=== PATIENT | female | born 1990 | race Hispanic/Latino ===

== ENCOUNTER 2023-11-08 21:53 | Observation (INO) | payer BC, SELFPAY ==
[2023-11-08] MEDS ORDERED: Ketorolac Tromethamine 30 MG (1 mL) VIAL ONE (23:04)
[2023-11-08] MEDS ORDERED: Famotidine/PF 20 mg/2ml Vial ONE (23:04)
[2023-11-08 23:09] LABS: #Basophils Less than 0.03 10x3/uL (0.0-0.2); %Basophils 0.2 % (0.0-1.0); %Eosinophils 0.3 % (0.0-10.0); %Lymphocytes 19.5 % (21.0-51.0); %Monocytes 4.2 % (0.0-10.0); %Neutrophils 75.4 % (42.0-75.0); Hematocrit 39.7 % (36.0-47.0); Hemoglobin 12.8 g/dL (12.0-16.0); Mean Corpuscular HGB CONC 32.2 g/dL (32.0-36.0); Mean Corpuscular Hemoglobin 27.1 pg (27.0-31.0); Mean Corpuscular Volume 83.9 fL (78.0-98.0); Mean Platelet Volume 11.3 fL (7.4-10.4); Platelet Count 309 10x3/uL (130-400); RBC Distribution Width 14.9 % (11.5-14.5); Red Blood Cell (RBC) Count 4.73 mill/uL (4.20-5.40)
[2023-11-08 23:21] LABS: ALT (SGPT) 84 U/L (8-55); AST (SGOT) 133 U/L (5-34); Albumin 4.1 g/dL (3.5-5.0); Alkaline Phosphatase 157 U/L (40-110); Anion Gap 15 mmol/L (10-20); BUN (Urea Nitrogen) 14 mg/dL (7.0-18.7); Bilirubin, Total 0.7 mg/dL (0.2-1.2); Calc. Creatinine Clearance 0 mL/min (70-130); Calcium 9.3 mg/dL (7.8-10.44); Carbon Dioxide 21 mmol/L (22-29); Chloride 109 mmol/L (98-107); Estimated GFR 100; Globulin 3.4 g/dL (2.4-3.5); Glucose 124 mg/dL (70-105); Lipase 34 U/L (8-78); Potassium 3.9 mmol/L (3.5-5.1); Protein, Total 7.5 g/dL (6.0-8.3); Sodium 141 mmol/L (136-145)
[2023-11-08 23:28] LABS: Troponin I Less than 0.010 ng/mL (< 0.028)
[2023-11-08 23:40] LABS: BHCG - Serum Negative (NEGATIVE); Pregs Control Background? CLEAR/WHITE (CLR/WHITE); Pregs Control Bar Appear? YES (CONTROL BAR)
[2023-11-09 00:41] LABS: Bacteria/HPF None Seen HPF (None Seen); Bilirubin Negative (Negative); Blood, Urine Negative (Negative); CAUTI Indications for Culture Pelvic or flank pain; Clarity Clear (Clear); Glucose, Urine (Dipstick) Normal (Negative); Ketone, Urine 20 mg/dL (Negative); Leukocyte 25 Leu/uL (Negative); Nitrite Negative (Negative); Protein, Urine (Dipstick) 20 mg/dL (Neg-Trace); RBC/HPF 0-3 HPF (0-3); Specific Gravity, Urine 1.033 (1.002-1.036); Squamous Epithelial 0-3 HPF (0-3); Urine Culture Reflex No No; WBC/HPF 0-3 HPF (0-3); pH, Urine 7.5 (5.0-9.0)
[2023-11-09] MEDS ORDERED: Ondansetron PF 4 MG/2 ML Vial ONE (01:25)
[2023-11-09] MEDS ORDERED: Morphine 4 MG/ML VIAL ONE (01:25)
[2023-11-09] MEDS ORDERED: Sodium Chloride 0.9% 100 ML ONE (01:39)
[2023-11-09] MEDS ORDERED: Piperacillin/Tazobactam 4.5 GM VIAL ONE (01:39)
[2023-11-09] MEDS ORDERED: Morphine 4 MG/ML VIAL SLOW IVP PRN ×2 (01:51→03:09)
[2023-11-09 02:55] VITALS: BMI 37.2
[2023-11-09] MEDS ORDERED: HYDROcodone/Acetaminophen 7.5/325 mg Tablet PO PRN (03:08)
[2023-11-09] MEDS ORDERED: Acetaminophen 325 MG TAB PO PRN (03:09)
[2023-11-09] MEDS ORDERED: Promethazine HCl 25 MG/ML VIAL IM PRN (03:09)
[2023-11-09] MEDS ORDERED: Ondansetron PF 4 MG/2 ML Vial IVP PRN (03:09)
[2023-11-09] MEDS ORDERED: Calcium Carbonate 500 MG ChewTAB PO PRN (03:09)
[2023-11-09] MEDS ORDERED: Mag-Al 1200 mg/1200 mg/30 ML UDCUP PO PRN (03:09)
[2023-11-09] MEDS ORDERED: hydrALAZINE 20 MG/ML VIAL SLOW IVP PRN (03:09)
[2023-11-09] MEDS: Lactated Ringer's 1,000 ML IV SCH (03:17)
[2023-11-09] MEDS: Piperacillin/Tazobactam 3.375 GM in Sodium Chloride 0.9% 100 ML IVPB SCH (05:59)
[2023-11-09] MEDS: Ondansetron PF 4 MG/2 ML Vial IVP PRN (06:00)
[2023-11-09] MEDS: Famotidine 20 MG TAB PO SCH (07:34)
[2023-11-09 08:33] LABS: ALT (SGPT) 210 U/L (8-55); AST (SGOT) 290 U/L (5-34); Albumin 3.3 g/dL (3.5-5.0); Alkaline Phosphatase 148 U/L (40-110); Anion Gap 10 mmol/L (10-20); BUN (Urea Nitrogen) 12 mg/dL (7.0-18.7); Bilirubin, Total 1.4 mg/dL (0.2-1.2); Calc. Creatinine Clearance 234 mL/min (70-130); Calcium 8.7 mg/dL (7.8-10.44); Carbon Dioxide 21 mmol/L (22-29); Chloride 110 mmol/L (98-107); Estimated GFR 119; Globulin 3.1 g/dL (2.4-3.5); Glucose 107 mg/dL (70-105); Potassium 3.8 mmol/L (3.5-5.1); Protein, Total 6.4 g/dL (6.0-8.3); Sodium 137 mmol/L (136-145)
[2023-11-09 15:39] VITALS: BP 127/86; TEMP 97.6
== END 2023-11-09 18:36 | disposition home or self-care (01) ==
LOC: ERS 21:53 → SJJU 11-09 01:43
PROVIDERS: ADMIT Student in an Organized Health Care Education/Training Program; ATTEND Student in an Organized Health Care Education/Training Program
DX: K80.00 Calculus of gallbladder with acute cholecystitis without obstruction (principal); Z88.2 Allergy status to sulfonamides; Z88.5 Allergy status to narcotic agent
CPT/HCPCS: 36415; 71045; 71275; 76705; 80053; 81001; 83690; 83880; 84484; 84703; 85025; 85379; 93005; 96365; 96375; 96376; G0378; J1885; J2270; J2405; J2543; J3490; J7120; S0028

== ENCOUNTER 2023-11-10 05:08 | Inpatient (IN) | payer BC, SELFPAY ==
[2023-11-10] MEDS ORDERED: Ketorolac Tromethamine 30 MG (1 mL) VIAL ONE (06:06)
[2023-11-10 06:10] LABS: #Basophils Less than 0.03 10x3/uL (0.0-0.2); %Basophils 0.3 % (0.0-1.0); %Eosinophils 1.2 % (0.0-10.0); %Lymphocytes 26.1 % (21.0-51.0); %Monocytes 4.3 % (0.0-10.0); %Neutrophils 67.9 % (42.0-75.0); Hematocrit 38.3 % (36.0-47.0); Hemoglobin 12.6 g/dL (12.0-16.0); Mean Corpuscular HGB CONC 32.9 g/dL (32.0-36.0); Mean Corpuscular Hemoglobin 26.8 pg (27.0-31.0); Mean Corpuscular Volume 81.5 fL (78.0-98.0); Mean Platelet Volume 11.3 fL (7.4-10.4); Platelet Count 266 10x3/uL (130-400)
[2023-11-10 06:31] LABS: ALT (SGPT) 543 U/L (8-55); AST (SGOT) 415 U/L (5-34); Albumin 3.6 g/dL (3.5-5.0); Alkaline Phosphatase 259 U/L (40-110); Anion Gap 12 mmol/L (10-20); BUN (Urea Nitrogen) 10 mg/dL (7.0-18.7); Bilirubin, Total 3.2 mg/dL (0.2-1.2); Calc. Creatinine Clearance 0 mL/min (70-130); Calcium 8.9 mg/dL (7.8-10.44); Carbon Dioxide 19 mmol/L (22-29); Chloride 107 mmol/L (98-107); Estimated GFR 118; Globulin 3.4 g/dL (2.4-3.5); Glucose 125 mg/dL (70-105); Lipase 28 U/L (8-78); Sodium 134 mmol/L (136-145)
[2023-11-10] MEDS ORDERED: Ondansetron PF 4 MG/2 ML Vial ONE (06:38)
[2023-11-10] MEDS ORDERED: Ondansetron ODT 4 MG TAB SL PRN (07:00)
[2023-11-10] MEDS ORDERED: Ondansetron PF 4 MG/2 ML Vial IVP PRN (07:00)
[2023-11-10 07:02] LABS: BHCG - Serum Negative (NEGATIVE); Pregs Control Background? CLEAR/WHITE (CLR/WHITE); Pregs Control Bar Appear? YES (CONTROL BAR)
[2023-11-10] MEDS ORDERED: hydrALAZINE 20 MG/ML VIAL SLOW IVP PRN (07:51)
[2023-11-10] MEDS ORDERED: Mag-Al 1200 mg/1200 mg/30 ML UDCUP PO PRN (07:51)
[2023-11-10] MEDS ORDERED: Calcium Carbonate 500 MG ChewTAB PO PRN (07:51)
[2023-11-10] MEDS: Famotidine 20 MG TAB PO SCH (08:31)
[2023-11-10] MEDS: Sodium Chloride 0.9% 1,000 ML IV SCH (08:31)
[2023-11-10 08:34] VITALS: BMI 37.2
[2023-11-10] MEDS: Lactated Ringer's 1,000 ML IV SCH (08:46)
[2023-11-10] MEDS: Famotidine/PF 20 mg/2ml Vial SLOW IVP SCH (08:46)
[2023-11-11] MEDS: Morphine 4 MG/ML VIAL SLOW IVP PRN (01:20)
[2023-11-11] MEDS: Ondansetron PF 4 MG/2 ML Vial IVP PRN (01:28)
[2023-11-11] MEDS: HYDROcodone/Acetaminophen 7.5/325 mg Tablet PO PRN (01:34)
[2023-11-11 06:30] LABS: #Basophils Less than 0.03 10x3/uL (0.0-0.2); %Basophils 0.4 % (0.0-1.0); %Eosinophils 1.7 % (0.0-10.0); %Lymphocytes 36.2 % (21.0-51.0); %Neutrophils 54.3 % (42.0-75.0); Hemoglobin 11.5 g/dL (12.0-16.0); Mean Corpuscular HGB CONC 31.9 g/dL (32.0-36.0); Mean Corpuscular Hemoglobin 26.9 pg (27.0-31.0); Mean Corpuscular Volume 84.3 fL (78.0-98.0); Mean Platelet Volume 11.4 fL (7.4-10.4); Platelet Count 251 10x3/uL (130-400); RBC Distribution Width 15.4 % (11.5-14.5); Red Blood Cell (RBC) Count 4.27 mill/uL (4.20-5.40)
[2023-11-11 06:48] LABS: ALT (SGPT) 394 U/L (8-55); AST (SGOT) 180 U/L (5-34); Albumin 3.2 g/dL (3.5-5.0); Alkaline Phosphatase 275 U/L (40-110); Anion Gap 12 mmol/L (10-20); BUN (Urea Nitrogen) 6 mg/dL (7.0-18.7); Bilirubin, Total 2.9 mg/dL (0.2-1.2); Calc. Creatinine Clearance 224 mL/min (70-130); Calcium 8.9 mg/dL (7.8-10.44); Carbon Dioxide 22 mmol/L (22-29); Chloride 109 mmol/L (98-107); Estimated GFR 118; Glucose 89 mg/dL (70-105); Lipase 13 U/L (8-78); Potassium 4.1 mmol/L (3.5-5.1); Protein, Total 6.2 g/dL (6.0-8.3); Sodium 139 mmol/L (136-145)
[2023-11-11] MEDS ORDERED: Iopamidol 30 ML ONE (14:27)
[2023-11-11] MEDS ORDERED: EPINEPHrine 1 MG/ML VIAL ONE (14:27)
[2023-11-11] MEDS ORDERED: Bupivacaine 0.25% HCL 30 ML VIAL ONE (14:27)
[2023-11-11] MEDS ORDERED: Sodium Chloride 0.9% 100 ML ONE (15:01)
[2023-11-11] MEDS ORDERED: CEFAZOLIN 2 GM VIAL ONE (15:01)
[2023-11-11] MEDS ORDERED: Rocuronium Bromide 10 MG/ML (10ML VIAL) ONE (15:05)
[2023-11-11] MEDS ORDERED: Ondansetron PF 4 MG/2 ML Vial ONE (15:05)
[2023-11-11] MEDS ORDERED: Lidocaine 1% PF 5 ML VIAL ONE (15:05)
[2023-11-11] MEDS ORDERED: Dexamethasone 4 mg/ml Vial ONE (15:05)
[2023-11-11] MEDS ORDERED: Dexmedetomidine 200 MCG/2 ML VIAL ONE (15:06)
[2023-11-11] MEDS ORDERED: PROPOFOL 40 ML ONE (15:06)
[2023-11-11] MEDS ORDERED: SUGAMMADEX SODIUM 200 MG/2 ML VIAL ONE (15:06)
[2023-11-11] MEDS ORDERED: fentaNYL PF 100 MCG/2 ML SYRINGE ONE ×2 (15:06→16:37)
[2023-11-11] MEDS ORDERED: Promethazine HCl 25 MG/ML VIAL IM PRN (15:19)
[2023-11-11] MEDS ORDERED: Ondansetron HCl/PF 4 MG/2 ML Vial IVP PRN (15:19)
[2023-11-11] MEDS ORDERED: Meperidine HCl/PF 25 MG/ML VIAL SLOW IVP PRN (15:19)
[2023-11-11] MEDS ORDERED: Labetalol HCl 100 MG/20 ML VIAL ONE (16:17)
[2023-11-11] MEDS ORDERED: Glucagon 1 MG/ML KIT IM PRN (17:00)
[2023-11-11] MEDS ORDERED: HYDROcodone/Acetaminophen 10/325 mg Tablet PO PRN (17:00)
[2023-11-11] MEDS ORDERED: Ipratropium/Albuterol 3 ML NEB NEB PRN (17:00)
[2023-11-11] MEDS ORDERED: Dextrose 5% in Water 1,000 ML IV PRN (17:00)
[2023-11-11] MEDS ORDERED: Calcium Carbonate 500 MG ChewTAB PO PRN (17:00)
[2023-11-11] MEDS ORDERED: Dextrose 50% Abboject 50 ML SYRINGE SLOW IVP PRN (17:00)
[2023-11-11] MEDS ORDERED: fentaNYL 50 mcg/mL 1 mL Vial ONE ×2 (17:28→17:46)
[2023-11-11] MEDS ORDERED: Promethazine HCl 25 MG/ML VIAL ONE (17:29)
[2023-11-11] MEDS: Ketorolac Tromethamine 30 MG (1 mL) VIAL IVP SCH (18:52)
[2023-11-11] MEDS: Piperacillin/Tazobactam 3.375 GM in Sodium Chloride 0.9% 100 ML IVPB SCH (18:52)
[2023-11-11] MEDS: D5 1/2 NS w/20 mEq KCL 1,000 ML IV SCH (19:36)
[2023-11-11] MEDS: Famotidine 20 MG TAB PO SCH (20:42)
[2023-11-11] MEDS: Docusate 100 MG CAP PO SCH (20:42)
[2023-11-12] MEDS: Acetaminophen 325 MG TAB PO PRN (00:36)
[2023-11-12] MEDS: Ondansetron PF 4 MG/2 ML Vial IVP PRN (00:37)
[2023-11-12 06:20] LABS: ALT (SGPT) 340 U/L (8-55); AST (SGOT) 146 U/L (5-34); Albumin 3.1 g/dL (3.5-5.0); Alkaline Phosphatase 289 U/L (40-110); Bilirubin, Direct 2.7 mg/dL (0.1-0.3); Bilirubin, Total 3.8 mg/dL (0.2-1.2); Protein, Total 6.2 g/dL (6.0-8.3)
[2023-11-12] MEDS: Enoxaparin 30 MG (0.3 mL) SYRINGE SC SCH (09:09)
[2023-11-12] MEDS ORDERED: Iopamidol-370 76% 500 ML MDV (1 ML CHARGE) ONE (10:46)
[2023-11-12 15:18] LABS: ALT (SGPT) 362 U/L (8-55); AST (SGOT) 174 U/L (5-34); Albumin 3.2 g/dL (3.5-5.0); Alkaline Phosphatase 297 U/L (40-110); Anion Gap 16 mmol/L (10-20); BUN (Urea Nitrogen) 12 mg/dL (7.0-18.7); Bilirubin, Total 4.5 mg/dL (0.2-1.2); Calc. Creatinine Clearance 184 mL/min (70-130); Calcium 8.7 mg/dL (7.8-10.44); Carbon Dioxide 20 mmol/L (22-29); Chloride 107 mmol/L (98-107); Estimated GFR 95; Globulin 3.1 g/dL (2.4-3.5); Glucose 162 mg/dL (70-105); Potassium 3.8 mmol/L (3.5-5.1); Protein, Total 6.3 g/dL (6.0-8.3); Sodium 139 mmol/L (136-145)
[2023-11-12] MEDS: Promethazine HCl 25 MG/ML VIAL IM PRN (16:28)
[2023-11-12] MEDS ORDERED: Piperacillin/Tazobactam 3.375 GM in Sodium Chloride 0.9% 100 ML IVPB SCH (18:30)
[2023-11-12] MEDS: Piperacillin/Tazobactam 3.375 GM in Sodium Chloride 0.9% 100 ML IVPB SCH ×2 (18:42→23:54)
[2023-11-13 05:52] LABS: #Basophils Less than 0.03 10x3/uL (0.0-0.2); %Basophils 0.2 % (0.0-1.0); %Eosinophils 1.3 % (0.0-10.0); %Lymphocytes 34.1 % (21.0-51.0); %Monocytes 6.1 % (0.0-10.0); %Neutrophils 57.6 % (42.0-75.0); Hematocrit 26.3 % (36.0-47.0); Hemoglobin 8.4 g/dL (12.0-16.0); Mean Corpuscular HGB CONC 31.9 g/dL (32.0-36.0); Mean Corpuscular Hemoglobin 27.7 pg (27.0-31.0); Mean Corpuscular Volume 86.8 fL (78.0-98.0); Mean Platelet Volume 12.1 fL (7.4-10.4); Platelet Count 235 10x3/uL (130-400); RBC Distribution Width 16.1 % (11.5-14.5); Red Blood Cell (RBC) Count 3.03 mill/uL (4.20-5.40)
[2023-11-13 06:06] LABS: ALT (SGPT) 323 U/L (8-55); AST (SGOT) 138 U/L (5-34); Alkaline Phosphatase 285 U/L (40-110); Anion Gap 13 mmol/L (10-20); BUN (Urea Nitrogen) 11 mg/dL (7.0-18.7); Bilirubin, Total 3.5 mg/dL (0.2-1.2); Calc. Creatinine Clearance 203 mL/min (70-130); Calcium 8.4 mg/dL (7.8-10.44); Carbon Dioxide 17 mmol/L (22-29); Chloride 111 mmol/L (98-107); Estimated GFR 107; Glucose 128 mg/dL (70-105); Lipase 280 U/L (8-78); Potassium 4.4 mmol/L (3.5-5.1); Sodium 137 mmol/L (136-145)
[2023-11-13] MEDS ORDERED: Indomethacin 50 MG SUPP ONE (07:39)
[2023-11-13] MEDS ORDERED: fentaNYL PF 100 MCG/2 ML SYRINGE ONE (07:39)
[2023-11-13] MEDS ORDERED: PROPOFOL 20 ML ONE (07:40)
[2023-11-13] MEDS ORDERED: Lidocaine 1% PF 5 ML VIAL ONE (07:41)
[2023-11-13] MEDS ORDERED: Iopamidol 30 ML ONE (07:41)
[2023-11-13] MEDS ORDERED: Rocuronium Bromide 10 MG/ML (10ML VIAL) ONE (07:41)
[2023-11-13] MEDS ORDERED: Dexamethasone 20 MG/5 ML VIAL ONE (08:51)
[2023-11-13] MEDS ORDERED: Ondansetron PF 4 MG/2 ML Vial ONE (08:51)
[2023-11-13] MEDS ORDERED: Ketorolac Tromethamine 30 MG (1 mL) VIAL ONE (08:51)
[2023-11-13] MEDS ORDERED: NEOSTIGMINE 3 MG/3 ML SYR 3 MG/3 ML SYRINGE ONE (09:00)
[2023-11-13] MEDS ORDERED: GLYCOPYRROLATE/PF 0.2 MG/ML VIAL ONE (09:00)
[2023-11-13] MEDS ORDERED: Promethazine HCl 25 MG/ML VIAL ONE (09:47)
[2023-11-14] MEDS: traMADol HCl 50 MG TAB PO PRN (01:15)
[2023-11-14 05:06] LABS: #Basophils Less than 0.03 10x3/uL (0.0-0.2); #Eosinphils Less than 0.03 10x3/uL (0.0-0.7); %Basophils 0.1 % (0.0-1.0); %Eosinophils 0.3 % (0.0-10.0); %Monocytes 7.4 % (0.0-10.0); %Neutrophils 66.5 % (42.0-75.0); Hematocrit 24.5 % (36.0-47.0); Hemoglobin 7.8 g/dL (12.0-16.0); Mean Corpuscular HGB CONC 31.8 g/dL (32.0-36.0); Mean Corpuscular Hemoglobin 26.8 pg (27.0-31.0); Mean Corpuscular Volume 84.2 fL (78.0-98.0); Platelet Count 208 10x3/uL (130-400); RBC Distribution Width 16.1 % (11.5-14.5); Red Blood Cell (RBC) Count 2.91 mill/uL (4.20-5.40)
[2023-11-14 06:06] LABS: ALT (SGPT) 319 U/L (8-55); AST (SGOT) 133 U/L (5-34); Albumin 2.9 g/dL (3.5-5.0); Alkaline Phosphatase 273 U/L (40-110); Anion Gap 13 mmol/L (10-20); BUN (Urea Nitrogen) 6 mg/dL (7.0-18.7); Bilirubin, Total 1.6 mg/dL (0.2-1.2); Calc. Creatinine Clearance 245 mL/min (70-130); Calcium 8.5 mg/dL (7.8-10.44); Carbon Dioxide 19 mmol/L (22-29); Chloride 112 mmol/L (98-107); Estimated GFR 121; Globulin 2.9 g/dL (2.4-3.5); Glucose 117 mg/dL (70-105); Lipase 56 U/L (8-78); Potassium 3.8 mmol/L (3.5-5.1); Protein, Total 5.8 g/dL (6.0-8.3); Sodium 140 mmol/L (136-145)
[2023-11-14] MEDS: Pantoprazole 40 MG VIAL IVP SCH (09:10)
[2023-11-14 11:44] VITALS: BP 116/75; TEMP 98.6
== END 2023-11-14 16:00 | disposition home or self-care (01) | DRG 418 ==
LOC: ERS 05:08 → SURG A 08:12 → OBSVTOIN 11-12 16:45
PROVIDERS: ADMIT Surgery; ATTEND Surgery
PROC: 0FT44ZZ Resection of Gallbladder, Percutaneous Endoscopic Approach (ICD-10-PCS; principal; 2023-11-11)
PROC: 3E033XZ Introduction of Vasopressor into Peripheral Vein, Percutaneous Approach (ICD-10-PCS; 2023-11-11)
PROC: 0FC98ZZ Extirpation of Matter from Common Bile Duct, Via Natural or Artificial Opening Endoscopic (ICD-10-PCS; 2023-11-13)
DX: K80.10 Calculus of gallbladder with chronic cholecystitis without obstruction (principal); K80.40 Calculus of bile duct with cholecystitis, unspecified, without obstruction; K82.8 Other specified diseases of gallbladder; R74.01 Elevation of levels of liver transaminase levels; Z98.891 History of uterine scar from previous surgery; Z88.5 Allergy status to narcotic agent; Z88.2 Allergy status to sulfonamides; K80.00 Calculus of gallbladder with acute cholecystitis without obstruction
CPT/HCPCS: 36415; 71045; 71275; 74181; 74330; 76705; 80053; 80076; 81001; 83690; 83880; 84484; 84703; 85025; 85379; 88304; 93005; 96365; 96374; 96375; 96376; C1889; C2625; C9113; G0378; J0171; J0665; J1100; J1650; J1885; J2270; J2405; J2543; J2550; J2704; J3010; J3480; J3490; J7120; Q9967; S0028

== ENCOUNTER 2023-12-27 05:57 | Day surgery (SDC) | payer BC ==
[2023-12-24 10:42] VITALS: BMI 35.4
[2023-12-27] MEDS ORDERED: fentaNYL 50 mcg/mL 1 mL Vial ONE (07:05)
[2023-12-27] MEDS ORDERED: PROPOFOL 20 ML ONE (07:05)
[2023-12-27] MEDS ORDERED: Lidocaine 2% PF 5 ML VIAL ONE (07:06)
[2023-12-27] MEDS ORDERED: Rocuronium Bromide 10 MG/ML (10ML VIAL) ONE (07:07)
[2023-12-27] MEDS ORDERED: Iopamidol 15 ML ONE (07:07)
[2023-12-27] MEDS ORDERED: Famotidine/PF 20 mg/2ml Vial ONE (07:13)
[2023-12-27] MEDS ORDERED: Dexamethasone 4 mg/ml Vial ONE (07:59)
[2023-12-27] MEDS ORDERED: Ondansetron PF 4 MG/2 ML Vial ONE (07:59)
[2023-12-27] MEDS ORDERED: SUGAMMADEX SODIUM 200 MG/2 ML VIAL ONE (08:00)
[2023-12-27] MEDS ORDERED: Ketorolac Tromethamine 30 MG (1 mL) VIAL ONE (08:01)
[2023-12-27] MEDS ORDERED: Promethazine HCl 25 MG/ML VIAL ONE (08:42)
== END 2023-12-27 09:50 | disposition home or self-care (01) ==
LOC: SDC 05:57
PROVIDERS: ATTEND Internal Medicine Gastroenterology
PROC: 0FPD8DZ Removal of Intraluminal Device from Pancreatic Duct, Via Natural or Artificial Opening Endoscopic (ICD-10-PCS; principal; 2023-12-27)
PROC: 0FC98ZZ Extirpation of Matter from Common Bile Duct, Via Natural or Artificial Opening Endoscopic (ICD-10-PCS; principal; 2023-12-27)
DX: K80.50 Calculus of bile duct without cholangitis or cholecystitis without obstruction (principal); Z88.2 Allergy status to sulfonamides; Z90.49 Acquired absence of other specified parts of digestive tract
CPT/HCPCS: 74330; J1100; J1885; J2001; J2405; J2550; J2704; J3010; J3490; Q9967